=== PATIENT | male | born 1945 | race Caucasian/White ===

== ENCOUNTER 2024-02-16 13:25 | Emergency (ER) | payer MEDICARE, OTHER ==
[~2024-02-16] VITALS: Ht 172.7 cm; Wt 113.4 kg
[2024-02-16] MEDS ORDERED: ELIQUIS (13:45)
[2024-02-16] MEDS ORDERED: ACETAMINOPHEN 500 MG TABLET ONE (14:11)
[2024-02-16] MEDS ORDERED: CIPR1DRO2 RIGHT EAR (14:13)
[2024-02-16] MEDS ORDERED: CEFU500T66 PO (14:13)
[2024-02-16] MEDS: ACETAMINOPHEN 500 MG TABLET PO ONE (14:14)
[2024-02-16 14:50] VITALS: BP 132/80; O2SAT 97
== END 2024-02-16 14:30 | disposition home or self-care (01) ==
LOC: ER 13:25
DX: H66.91 Otitis media, unspecified, right ear (principal); E11.9 Type 2 diabetes mellitus without complications; Z79.899 Other long term (current) drug therapy; Z60.2 Problems related to living alone; Z88.0 Allergy status to penicillin
CPT/HCPCS: A4606; A4663; A9150

== ENCOUNTER 2024-02-21 11:11 | Emergency (ER) | payer MEDICARE, OTHER ==
[~2024-02-21] VITALS: Ht 172.7 cm; Wt 113.4 kg
[~2024-02-21 11:11] MED LIST: CEFU500T66 PO; CIPR1DRO2 RIGHT EAR; ELIQUIS
[2024-02-21] MEDS ORDERED: FLUC200T PO (11:40)
[2024-02-21] MEDS ORDERED: ACET15SO5 RIGHT EAR (11:40)
[2024-02-21 11:44] VITALS: BP 121/66; TEMP 98.6; O2SAT 98
== END 2024-02-21 11:49 | disposition home or self-care (01) ==
LOC: ER 11:11
DX: B37.84 Candidal otitis externa (principal); E11.9 Type 2 diabetes mellitus without complications; Z79.899 Other long term (current) drug therapy; Z60.2 Problems related to living alone; Z88.0 Allergy status to penicillin
CPT/HCPCS: A4606; A4663